=== PATIENT | male | born 1975 | race Two or more races ===

== ENCOUNTER 2025-04-01 18:40 | Emergency (ER) | payer MEDICAID, SELFPAY ==
[2025-04-01 18:42] VITALS: BMI 25.7
[2025-04-01 19:09] VITALS: BP 126/71; PULSE 71; RESP 18; TEMP 37.1; O2SAT 95
--- NOTE | 2025-04-01 19:36 | PD.EDRME ---
Rapid Medical Screening Exam RME Arrival date/time: 04/01/25 18:40 Chief Complaint: General Adult/Misc Complain Time Seen by Provider: 04/01/25 19:05 Vital signs: Vital Signs Temperature 98.7 F 04/01/25 19:09 Pulse Rate 71 04/01/25 19:09 Respiratory Rate 18 04/01/25 19:09 Blood Pressure 126/71 04/01/25 19:09 Pulse Oximetry (%) 95 04/01/25 19:09 Oxygen Delivery Method Room Air 04/01/25 19:09 RME Narrative: Generalized sweating body heaviness, mild headache x 2 hours.
--- NOTE | 2025-04-01 19:37 | XR_ITS ---
Examination: CT brain head without contrast. 2-D sagittal coronal reconstructions Date and time of exam:April 01, 20252007 hours INDICATIONS: Headaches blurred vision today CTDI: vol (mGy):49 DLP: (mGycm):944 Technique: Multiple CT axial sections of the brain have been obtained, 5 mm slice thickness. Contrast has not been administered. 2-D sagittal, coronal reconstructions have been obtained Low dose protocols were performed. One or more of the following dose reduction techniques were used; automated exposure control, adjustment of the mA and/or KV according to patient size, use of iterative reconstruction technique. Findings: No significant ventricular enlargement. Intra-axial or extra-axial hemorrhage density is not seen. No mass effect or midline shift Basal cisterns are not remarkable. Fourth ventricle is midline. Cranial vault intact. Impression: Negative for acute hemorrhage, mass effect or midline shift
--- NOTE | 2025-04-01 19:37 | EKG_ITS ---
[facility] Test Date: 2025-04-01 Pat Name: LEYDA CASTILLO Department: Room: - Gender: Male [employer]isher: : 1975 Requested By: Naveed Lyn Order Number: [id number] Reading MD: Naveed Lyn Measurements Intervals [place] Rate: 58 P: 71 IA: 166 QRS: 48 QRSD: 105 T: 45 QT: 411 QTc: 404 Interpretive Statements SINUS BRADYCARDIA No previous ECG available for comparison /store/S0/[id number].pdf
[2025-04-01 20:19] LABS: Basophils % (Auto) 0 % (0-2.5); Eosinophils # (Auto) 0.1 Thou/mm3 (0.0-0.5); Eosinophils % (Auto) 1 % (0-10); Hemoglobin 16.2 g/dL (13.5-16.0); Immature Granulocytes % (Auto) 0 % (0-0); Immature Granulocytes Auto 0.05 Thou/mm3 (0.00-0.00); Lymphocytes # (Auto) 1.1 Thou/mm3 (1.0-4.8); Lymphocytes % (Auto) 8 % (10-50); Mean Corpuscular Hemoglobin 30.2 pg (25.0-35.0); Mean Corpuscular Volume 84 fL (80-100); Monocytes # (Auto) 0.6 Thou/mm3 (0.0-0.8); Monocytes % (Auto) 4 % (0-12); Neutrophils # (Auto) 11.4 Thou/mm3 (1.8-7.7); Neutrophils % (Auto) 86 % (37-80); Nucleated Red Blood Cell % 0 /100 WBC (0); Platelet Count 187 Thou/mm3 (140-440); RDW Standard Deviation 40.7 fL (35.1-43.9); Red Blood Count 5.36 Miln/mm3 (4.50-5.90); White Blood Count 13.2 Thou/mm3 (3.8-10.6)
[2025-04-01 20:52] LABS: Alanine Aminotransferase 11 U/L (10-49); Albumin, Serum 4.9 gm/dL (3.5-5.0); Alkaline Phosphatase 72 U/L (46-116); Anion Gap 7 (7-16); Aspartate Amino Transferase 22 U/L (0-34); BUN/Creatinine Ratio 15 Ratio (12-20); Bilirubin,Total 0.5 mg/dL (0.3-1.2); Blood Urea Nitrogen 15 mg/dL (9-23); Calcium 9.8 mg/dL (8.3-10.6); Calcium (Corrected) 9.8 mg/dL (8.5-10.1); Chloride 103 mMol/L (98-107); Creatine Kinase 88 U/L (34-171); Estimated Creatinine Clearance 75.2 mL/min (>60); Globulin 2.4 gm/dL (2.3-3.5); Glucose 105 mg/dL (74-106); Osmolality,Calculated 272 (275-295); Potassium 3.8 mMol/L (3.4-5.1); Sodium 136 mMol/L (136-145); Total Protein 7.3 gm/dL (5.7-8.2); Troponin I < 0.002 ng/mL (0.0-0.045); eGFR > 60 See Note
[2025-04-01 21:19] LABS: Collection Type, Urine Clean Catch
[2025-04-01 21:23] LABS: Bilirubin,Urine Negative (Negative); Blood,Urine 1+ (Negative); Clarity,Urine Clear (Clear/Hazy); Color,Urine Yellow (Lt Yel-Yel); Glucose, Urine Negative (Negative); Ketones,Urine Negative (Negative); Leukocyte Esterase,Urine Negative (Negative); Nitrite,Urine Negative (Negative); Protein,Urine Trace (Neg - Trace); RBC,Urine 4 /hpf (0-3); Specific Gravity,Urine 1.035 (1.001-1.035); Squamous Epithelial Cell,Urine < 1 /hpf (0-5); Urobilinogen,Urine Negative mg/dL (0.0-1.0); WBC,Urine 2 /hpf (0-5)
--- NOTE | 2025-04-01 22:24 | EDNOTE_ITS ---
ED Headache RME/HPI General Chief Complaint: General Adult/Misc Complain Stated Complaint: SWEATING AND BODY FEELS HEAVY x 1 HR Time Seen by Provider: 04/01/25 19:05 Arrival date/time: 04/01/25 18:40 RME / HPI RME / HPI Narrative: Generalized sweating body heaviness, mild headache x [address] ASCENCIO MAIN ED EVALUATION: 50 y/o male with Hx of Hypercholesterolemia presents to ED c/o headache, lethargy, sweats, weakness, and nausea x 3 hours. Patient denies working outside and reports drinking sufficient amounts of water. Denies double or blurred vision. Denies vomiting, cough, fever or any other associated symptoms or aggravating factors. No modifying factors, no radiation, no migration. No pain reported overall. Related Data Home Medications ?Medication ?Instructions ?Recorded ?Confirmed atorvastatin 20 mg tablet 20 mg PO QPM 01/31/22 Allergies Allergy/AdvReac Type Severity Reaction Status Date / Time No Known Allergies Allergy Verified 04/01/25 18:45 Review of Systems Review of Systems Systems Reviewed: All systems reviewed, normal except as documented Past Medical History Past Medical History CARDIAC: Positive Hypercholesterolemia Social History SMOKING STATUS: Never smoker ED Exam Narrative Physical exam: GENERAL APPEARANCE: alert and oriented x 4, well-developed, well-nourished, no acute distress VITALS: All vitals were reviewed and the pulse ox is 95% on room air, which is normal according to my interpretation. HEENT: Normocephalic, atraumatic; pupils equal, round, reactive to light; EOMI; mucous membranes pink, moist; oropharynx clear NECK: Supple LUNGS: CTABL; no wheezes, no rales, no rhonchi HEART: Regular rate, regular rhythm; normal S1, S2; no murmurs ABDOMEN: non distended; normal BS; soft, no tenderness, no guarding, no rebound; no masses, no organomegaly, no hernia BACK: no CVA tenderness EXTREMITIES: atraumatic; no edema NEUROLOGIC: awake; alert and oriented x4; cranial nerves II-XII grossly intact; no focal sensory or motor deficits PSYCHIATRIC: appropriate mood and affect SKIN: warm, dry, normal color; no rashes Course Quality Measures none Orders Category Date Time Status EKG (ED ONLY) *Do not use* NOW Care 04/01/25 19:[address] head/brain wo con Stat Exams 04/01/25 19:37 Taken EKG (ED Only) Stat Exams 04/01/25 19:37 Draft CBC Stat Lab 04/01/25 19:48 Completed CK [Creatine Kinase] Stat Lab 04/01/25 19:48 Completed CMP [Comprehensive Metabolic Panel] Stat Lab 04/01/25 19:48 Completed Lactate (Lactic Acid) Stat Lab 04/01/25 22:31 Completed Troponin I Stat Lab 04/01/25 19:48 Completed UA [Urinalysis] Stat Lab 04/01/25 19:50 Completed Ondansetron Inj [Zofran Inj] Med 04/01/25 22:16 Discontinued 4 mg IVP X1 ONE Sodium Chloride 0.9% 1000 ml [Ns] 1,000 ml Med 04/01/25 22:16 Discontinued IV 999 mls/hr Sodium Chloride 0.9% 1000 ml [Ns] 1,000 ml Med 04/01/25 22:16 Discontinued IV 999 mls/hr Vital Signs Vital signs: Vital Signs Temperature 98.7 F 04/01/25 19:09 Pulse Rate 71 04/01/25 19:09 Respiratory Rate 18 04/01/25 19:09 Blood Pressure 126/71 04/01/25 19:09 Pulse Oximetry (%) 95 04/01/25 19:09 Oxygen Delivery Method Room Air 04/01/25 19:09 Headache MDM Narrative MDM Narrative:: Scribe Attestation: IMiri am scribing for and in the presence of Dr. Ascencio. Provider Notation: Although this document has been carefully reviewed, there may still be some phonetic and other typographical errors.? These errors are purely grammatical due to imperfections in the software program and should not be construed in any way to? compromise the substance of the patient's medical care during this visit. Patient data External records reviewed:: [facility] previous records (Reviewed prior ED record from 01/31/22. Patient was seen for Low back pain.) Clinical information provided by:: patient Social determinants that could affect healthcare access:: none Patient has the following chronic illnesses:: Hypercholesterolemia. How is presenting disease/condition affected by chronic disease/condition?: exacerbated by Evaluation data The following diagnostics were reviewed and interpreted by me:: lab results, radiology exam(s) and EKG tracing(s) (1944: EKG manual reading, my interpretation: sinus rhythm, rate: 58 bpm, T-wave inversion in V1, elevated R- wave in V2, V3, V4.) Lab and/or radiology exams considered but not ordered:: None Interpretation Summary: RADIOLOGY Head CT: CT scan of the head without intravenous contrast (axial sections with sagittal and coronal reformats) April 01, 2025 2007 hours Clinical history: Headache, blurry vision. Radiation Dose: Total exam DLP 939 mGy/cm Comparison: No prior study is available for comparison. Findings: There is no evidence of intracranial hemorrhage, mass effect or midline shift. There are periventricular white matter hypodensities, compatible with chronic small vessel ischemia. There is mild volume loss. The calvarium is unremarkable. The mastoid air cells and the visualized paranasal sinuses are clear. Impression: 1. No evidence of intracranial hemorrhage, mass effect or midline shift. 2. Periventricular chronic small vessel ischemia and volume loss. 3. Other findings as described above. Suggest clinical correlation and follow up accordingly. Report Electronically Signed By: Franklin Hale 04/02/2025 1:17:59 AM [EST] Medications / Prescriptions Medications or Prescriptions considered but not ordered:: None Medication administrations:: Medication Administration History Discontinued Medications Sodium Chloride (Ns) 1,000 mls @ 999 mls/hr IV .Q1H1M ONE Stop: 04/01/25 23:16 Last Infusion: 04/02/25 00:14 Dose: Infused Documented By: Admin: 04/01/25 22:38 Dose: 999 mls/hr Documented By: GAVINO Sodium Chloride (Ns) 1,000 mls @ 999 mls/hr IV .Q1H1M ONE Stop: 04/01/25 23:16 Last Infusion: 04/02/25 00:15 Dose: Infused Documented By: Admin: 04/01/25 22:39 Dose: 999 mls/hr Documented By: GAVINO Ondansetron HCl (Ondansetron Inj 2 Mg/Ml Inj 2 Ml) 4 mg IVP X1 ONE; Protocol Stop: 04/01/25 22:17 Last Admin: 04/01/25 22:38 Dose: 4 mg Documented By: GAVINO See above Consultations Consultation(s) initiated? (list below): No Diagnosis Differential diagnosis headache: migraine, tension headache, subarachnoid hemorrhage, headache, meningitis and sinusitis Most likely diagnosis given after review of the tests above:: Mild dehydration Admission Indicated Admission indicated?: not indicated Explain why admission is indicated or not indicated:: Patient does not meet admission criteria. Admission Request Was there a request for admission?: No Disposition Plan Disposition Plan: Discharge Discharge Attestation Discharge Attestation: The patient and all family members were given an opportunity to ask questions and understood the discharge instructions. Discharge instructions specifically effects, indications for sooner follow up or return to the emergency department, and the expected course of current diagnosis. Patient condition: Stable Discharge Plan Plan Patient Disposition: HOME (Self Care) Prescriptions/Referrals Prescriptions/Med Rec: No Action atorvastatin 20 mg Tablet 20 mg PO QPM Referrals: Channing Owusu MD [Primary Care Provider] - In 1 week Problem List Clinical Impression: Dehydration, mild Patient/Caregiver Discharge Instructions Education Materials: ED Dehydration (Adult) Print Language: Divehi Stand Alone Forms: Elizabeth Award Info., Patient Portal Info Letter
[2025-04-01] MEDS: SODIUM CHLORIDE 0.9% 1000 ML 1,000 ML 999 ML IV ×2 (22:38→22:39)
[2025-04-01] MEDS: ONDANSETRON INJ 2 MG/ML INJ 2 ML 4 MG IVP (22:38)
[2025-04-01 22:40] VITALS: BP 136/76; PULSE 66; RESP 18; TEMP 36.9; O2SAT 97
[2025-04-01 22:46] LABS: Lactate (Lactic Acid) 1.4 mMol/L (0.4-2.0)
--- NOTE | 2025-04-02 00:36 | PC.NURSE ---
CT contacted due to CT scans delay in results
--- NOTE | 2025-04-02 01:18 | PRELIM_ITS ---
CT scan of the head without intravenous contrast (axial sections with sagittal and coronal reformats) April 01, 2025 2007 hours Clinical history: Headache, blurry vision. Radiation Dose: Total exam DLP 939 mGy/cm Comparison: No prior study is available for comparison. Findings: There is no evidence of intracranial hemorrhage, mass effect or midline shift. There are periventricular white matter hypodensities, compatible with chronic small vessel ischemia. There is mild volume loss. The calvarium is unremarkable. The mastoid air cells and the visualized paranasal sinuses are clear. Impression: 1. No evidence of intracranial hemorrhage, mass effect or midline shift. 2. Periventricular chronic small vessel ischemia and volume loss. 3. Other findings as described above. Suggest clinical correlation and follow up accordingly. Report Electronically Signed By: Franklin Hale 04/02/2025 1:17:59 AM [EST]
[2025-04-02 01:39] VITALS: BP 139/76; PULSE 63; RESP 17; TEMP 37.1; O2SAT 97
== END 2025-04-02 01:47 | disposition home or self-care (01) ==
PROVIDERS: Physician Assistant; Emergency Provider Emergency Medicine; PCP Family Medicine
DX: E86.0 Dehydration (principal); E78.00 Pure hypercholesterolemia, unspecified; I67.82 Cerebral ischemia
CPT/HCPCS: 36415; 70450; 80053; 81001; 82550; 83605; 84484; 85025; 93005; 96361; 96374; 99284; J2405; J7030

== ENCOUNTER → 2025-05-30 | Outpatient (CLI) | payer MEDICAID, SELFPAY ==
--- NOTE | 2025-05-30 16:00 | XR_ITS ---
Examination: MRI thoracic spine without contrast. Date and time of exam: May 30, 2025, 1610 hours INDICATIONS: Neoplasm of unspecified behavior bone soft tissue and skin, palpable soft tissue mass and swelling right lower thoracic back region 4 years, getting larger Technique: Multiple sagittal and axial images of the thoracic spine have been obtained. T1 weighted localizer, sagittal T2 weighted images, TR 30-50, TE 148, T1 weighted sagittal images, TR 650, TE 14, T2-weighted transverse images, TR 6770, TE 142 Findings: Adequate alignment thoracic vertebral bodies. No thoracic fracture. No thoracic disc narrowing. No focal thoracic disc protrusion impinging upon the thoracic cord No localized enlargement thoracic cord At the marker site posterior right back no soft tissue mass is depicted Impression: Satisfactory alignment thoracic vertebral bodies No thoracic degenerative disc disease. No focal thoracic disc protrusion. At the palpable marker site no soft tissue mass is depicted, recommend ultrasound soft tissue follow-up at the palpable mass site
== END | disposition home or self-care (01) ==
PROVIDERS: PCP Physician Assistant; Referring Provider Physician Assistant; Visit Provider Physician Assistant
DX: D49.2 Neoplasm of unspecified behavior of bone, soft tissue, and skin (principal)
CPT/HCPCS: 72146